=== PATIENT | female | born 1985 | race American Indian/Alaskan Native ===

== ENCOUNTER 2017-05-28 19:12 | Emergency (ER) | payer OTHER ==
[2017-05-28 19:46] VITALS: BP 110/73; PULSE 75; RESP 16; TEMP 98.5; O2SAT 100
--- NOTE | 2017-05-28 20:02 | C.PDOC ---
History Of Present Illness 31 year old female presents to ED with complaints of right wrist pain and buttocks pain after fall yesterday while [place] [employer]. She reports falling twice once on her bottom and then another fall catching her wrist. She took Tylenol last night and this afternoon with mild relief. She wants xrays. Denies any head injury, numbness, weakness, incontinence, other associated complaint. She is right hand dominant. - HPI Time Seen by Provider: 05/28/17 19:49 Chief Complaint (Nursing): Upper Extremity Problem/Injury History Per: Patient History/Exam Limitations: no limitations Onset/Duration Of Symptoms: Days Injury Occurred (Timing): Days Ago: (Yesterday) Location Of Injury: Right: Wrist, Posterior: Back Recent travel outside of the [place]: No Past Medical History Reviewed: Historical Data, Nursing Documentation, Vital Signs Vital Signs: Last Vital Signs Temp 98.5 F 05/28/17 19:40 Pulse 75 05/28/17 19:40 Resp 16 05/28/17 19:40 BP 110/73 05/28/17 19:40 Pulse Ox 100 05/28/17 21:17 - Medical History PMH: Seizures (BRAIN SURGERIES) Surgical History: No Surg Hx Family History: States: Unknown Family Hx - Social History Hx Tobacco Use: No Hx Alcohol Use: No Hx Substance Use: No - Immunization History Hx Tetanus Toxoid Vaccination: Yes Hx Influenza Vaccination: No Hx Pneumococcal Vaccination: No Review Of Systems Musculoskeletal: Positive for: Back Pain, Hand Pain Neurological: Negative for: Weakness, Numbness Physical Exam - Physical Exam Appears: Non-toxic Skin: Normal Color, Warm, Dry Head: Atraumatic, Normacephalic Oral Mucosa: Moist Back: Other (Mild tenderness to sacrum and coccyx, no swelling, no ecchymosis. normal ROM) Extremity: Tenderness (Across entire right wrist, no focal bony tenderness, pain with pronation and rotation of wrist. None to hands and digits.), No Swelling Pulses: Left Radial: Normal, Right Radial: Normal Neurological/Psych: Oriented x3, Normal Speech, Normal Cognition ED Course And Treatment O2 Sat by Pulse Oximetry: 100 (Room air) Pulse Ox Interpretation: Normal Medical Decision Making Medical Decision Making: Impression: 31 year old female with fall last night while skating complains of right wrist and buttock pain. Plan: Xrays of wrist and sacrum/coccyx. Patient declined any analgesic at this time Progress: XRays reviewed by me showing no acute fractures. Volar splint applied to wrist for support. Patient advised to take analgesics as needed Disposition Counseled Patient/Family Regarding: Diagnosis, Need For Followup - Disposition Disposition: HOME/ ROUTINE Disposition Time: 21:14 Condition: STABLE Additional Instructions: Your xray was normal, no fracture. Please apply ice to area 15 minutes three times a day. Take Motrin as needed for pain every 6 hours, with food to not upset stomach. Follow up with orthopedic if pain persists over one week. Instructions: Wrist Injury (ED), Contusion in Adults (ED) Forms: [employer] (Armenian) - POA Present On Arrival: None - Clinical Impression Clinical Impression: Back contusion, Wrist sprain - Scribe Statement Bret Ni All medical record entries made by the Scribe were at my direction and personally dictated by me. I have reviewed the chart and agree that the record accurately reflects my personal performance of the history, physical exam, medical decision making, and the department course for this patient. I have also personally directed, reviewed, and agree with the discharge instructions and disposition.
--- NOTE | 2017-05-29 10:52 | RAD ---
PROCEDURE: Right Wrist Radiographs. HISTORY: pain s.p fall while skating COMPARISON: None available. FINDINGS: BONES: No acute displaced fracture. JOINTS: No dislocation. SOFT TISSUES: Unremarkable. No evidence of radiopaque foreign body OTHER FINDINGS: None. IMPRESSION: No acute displaced fracture, dislocation, or significant joint effusion identified. If symptoms persist, or if there is continued clinical concern, x-ray follow-up in 7-10 days should be considered.
--- NOTE | 2017-05-29 12:33 | RAD ---
PROCEDURE: Radiographs of the Sacrum and Coccyx HISTORY: pain s.p fall while skating COMPARISON: None available. TECHNIQUE: Frontal and lateral views of the sacrum and coccyx FINDINGS: BONES: Limited lateral view. Sacrum and coccyx appear otherwise grossly unremarkable. No acute displaced fracture identified. SACROILIAC JOINTS: Unremarkable. OTHER FINDINGS: None. IMPRESSION: Limited lateral view. No acute displaced fracture identified.
== END 2017-05-28 21:41 | disposition home or self-care (01) ==
LOC: C.ER 19:12
DX: S63.501A Unspecified sprain of right wrist, initial encounter (principal); S30.0XXA Contusion of lower back and pelvis, initial encounter; W01.0XXA Fall on same level from slipping, tripping and stumbling without subsequent striking against object, initial encounter; Y93.51 Activity, roller skating (inline) and skateboarding; Y92.331 Roller skating rink as the place of occurrence of the external cause

== ENCOUNTER 2017-09-20 19:18 | Emergency (ER) | payer OTHER ==
[2017-09-20 19:27] VITALS: RESP 16; TEMP 97.9
--- NOTE | 2017-09-20 19:35 | C.PDOC ---
History Of Present Illness 31 year old female presents to the ED for evaluation of pain to right first and second toes which began today. Patient states she over extended her right great toe while she slipped off of a step earlier today and landed on tippy toes. Patient denies head injury, LOC, extremity numbness/weakness at this time. Chief Complaint (Nursing): Lower Extremity Problem/Injury History Per: Patient History/Exam Limitations: no limitations Onset/Duration Of Symptoms: Hrs Current Symptoms Are (Timing): Still Present Additional History Per: Patient - Ankle/Foot Description Of Injury: Fell Past Medical History Reviewed: Historical Data, Nursing Documentation, Vital Signs Vital Signs: Last Vital Signs Temp 97.9 F 09/20/17 19:22 Pulse 75 09/20/17 21:04 Resp 16 09/20/17 21:04 BP 132/85 09/20/17 21:04 Pulse Ox 100 09/21/17 00:43 - Medical History PMH: Seizures (BRAIN SURGERIES) Surgical History: No Surg Hx Family History: States: Unknown Family Hx - Social History Hx Tobacco Use: No Hx Alcohol Use: No Hx Substance Use: No - Immunization History Hx Tetanus Toxoid Vaccination: Yes Hx Influenza Vaccination: No Hx Pneumococcal Vaccination: No Review Of Systems Musculoskeletal: Positive for: Foot Pain (right 1st and 2nd toes ) Neurological: Negative for: Weakness, Numbness Physical Exam - Physical Exam Appears: Non-toxic, No Acute Distress Skin: Normal Color, Warm, Dry Extremity: Normal ROM, Tenderness (slight, to right great toe ), Capillary Refill (less than 2 seconds ), No Deformity, No Swelling, Other (minimal tenderness to right 2nd toe ) Neurological/Psych: Oriented x3, Normal Speech, Normal Cognition, Normal Sensation Gait: Steady ED Course And Treatment O2 Sat by Pulse Oximetry: 100 (on RA) Pulse Ox Interpretation: Normal Progress Note: Motrin PO administered. Right foot XR ordered, results show no fracture or dislocations. Patient was provided with orthopedic shoe for support. On reassessment, patient is resting comfortably, showing no signs of distress and reports an improvement in her symptoms. Patient is advised to follow up with her PMD within 1-2 days for further evaluation and/or return to the ED if symptoms persist or worsen. 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 - Scribe Statement The provider has reviewed the documentation as recorded by the Scribe (Shwetha Hurley) All medical record entries made by the Scribe were at my direction and personally dictated by me. I have reviewed the chart and agree that the record accurately reflects my personal performance of the history, physical exam, medical decision making, and the department course for this patient. I have also personally directed, reviewed, and agree with the discharge instructions and disposition.
[2017-09-20 21:05] VITALS: BP 132/85; PULSE 75
[2017-09-20 23:41] VITALS: O2SAT 100
--- NOTE | 2017-09-21 09:18 | RAD ---
PROCEDURE: Right Foot Radiographs. HISTORY: pain, injured big toe COMPARISON: None. FINDINGS: BONES: Normal. No fracture. JOINTS: Normal. SOFT TISSUES: Mild soft tissue swelling over great toe OTHER FINDINGS: Mild hammertoe orientations IMPRESSION: No fracture
== END 2017-09-20 21:04 | disposition home or self-care (01) ==
LOC: C.ER 19:18
DX: S93.501A Unspecified sprain of right great toe, initial encounter (principal); W10.9XXA Fall (on) (from) unspecified stairs and steps, initial encounter

== ENCOUNTER 2017-11-16 15:19 | Emergency (ER) | payer OTHER ==
[2017-11-16 15:47] VITALS: RESP 16; O2SAT 100
--- NOTE | 2017-11-16 16:29 | C.PDOC ---
History Of Present Illness 31 y/o female with seizure disorder, on tamiflu for flu like symptoms, for last few days c/o worsening throat pain. pt not taking anything for pain. pain worse after coughing and with swallowing. pt concerned she may have strep throat. Time Seen by Provider: 11/16/17 15:58 Chief Complaint (Nursing): Flu-like Symptoms History Per: Patient History/Exam Limitations: no limitations Onset/Duration Of Symptoms: Days (4) Current Symptoms Are (Timing): Still Present Location Of Pain: Throat Sick Contacts (Context): None Associated Symptoms: Sore Throat, Cough Past Medical History Reviewed: Historical Data, Nursing Documentation, Vital Signs Vital Signs: Last Vital Signs Temp 98.6 F 11/16/17 17:13 Pulse 75 11/16/17 17:13 Resp 16 11/16/17 17:13 BP 98/63 L 11/16/17 17:13 Pulse Ox 100 11/16/17 22:23 - Medical History PMH: Seizures (BRAIN SURGERIES) Family History: States: Unknown Family Hx - Social History Hx Tobacco Use: No Hx Alcohol Use: No Hx Substance Use: No - Immunization History Hx Tetanus Toxoid Vaccination: Yes Hx Influenza Vaccination: No Hx Pneumococcal Vaccination: No Review Of Systems Constitutional: Positive for: Fever, Chills ENT: Positive for: Throat Pain Respiratory: Positive for: Cough, Pleuritic Pain, Sputum Gastrointestinal: Negative for: Vomiting, Abdominal Pain Physical Exam - Physical Exam Appears: Non-toxic, Other (uncomfortable) Skin: Warm, Dry Head: Atraumatic, Normacephalic Eye(s): bilateral: Normal Inspection Oral Mucosa: Moist Tongue: Normal Appearing Throat: Erythema, No Exudate, Other (no tonsillar enlargement) Neck: Supple Cardiovascular: Rhythm Regular, No Murmur Respiratory: No Decreased Breath Sounds, No Wheezing ED Course And Treatment O2 Sat by Pulse Oximetry: 100 Medical Decision Making Medical Decision Making: check rapid strep, give tylenol Disposition Counseled Patient/Family Regarding: Diagnosis, Need For Followup, Rx Given - Disposition Referrals: Eulalia Santoyo [Medical Doctor] - Disposition: HOME/ ROUTINE Disposition Time: 17:15 Condition: STABLE Additional Instructions: Gargle with warm salty water as prescribed. Take tylenol as prescrbied for pain. Drink increased warm fluids like tea with honey and lemon. Follow up with your doctor. Prescriptions: Acetaminophen [Tylenol 325mg tab] 650 mg PO Q6 #30 tab Instructions: Pharyngitis (ED) Forms: [employer] ([place] Islander), General Discharge Instructions - Clinical Impression Clinical Impression: Pharyngitis
[2017-11-16 17:13] VITALS: BP 98/63; PULSE 75; TEMP 98.6
== END 2017-11-16 17:22 | disposition home or self-care (01) ==
LOC: C.ER 15:19
DX: J02.9 Acute pharyngitis, unspecified (principal)

== ENCOUNTER 2017-11-24 17:43 | Emergency (ER) | payer OTHER ==
[2017-11-24 18:34] VITALS: BMI 25.0
[2017-11-24 18:38] VITALS: BP 96/85; PULSE 99; RESP 18; TEMP 98.4; O2SAT 98
== END 2017-11-24 18:50 | disposition left against medical advice (07) ==
LOC: C.ER 17:43
DX: Z02.89 Encounter for other administrative examinations (principal); J11.1 Influenza due to unidentified influenza virus with other respiratory manifestations

== ENCOUNTER 2017-11-24 22:50 | Emergency (ER) | payer OTHER ==
[2017-11-24 22:50] VITALS: BMI 25.0
[2017-11-25 00:23] VITALS: RESP 20; O2SAT 100
--- NOTE | 2017-11-25 01:16 | C.PDOC ---
History Of Present Illness Patient is a 31 y/o female who presents to the ED with complaints of cough and SOB worsening since last week. Patient was treated by PMD for flu-like symptoms with Tamiflu, but started coughing and feeling SOB, prompting ED visit. Patient denies fever, chills, nausea, or vomiting; admits to tolerating PO. No other physical complaints at this time. Time Seen by Provider: 11/25/17 01:15 Chief Complaint (Nursing): Flu-like Symptoms History Per: Patient History/Exam Limitations: no limitations Onset/Duration Of Symptoms: Days (last week) Current Symptoms Are (Timing): Still Present Associated Symptoms: denies: Fever, Chills, Nausea, Vomiting Severity: Moderate Pain Scale Rating Of: 4 Recent travel outside of the [place]: No Additional History Per: Patient Past Medical History Reviewed: Historical Data, Nursing Documentation, Vital Signs Vital Signs: Last Vital Signs Temp 98.7 F 11/25/17 00:15 Pulse 96 H 11/25/17 00:15 Resp 20 11/25/17 00:15 BP 122/87 11/25/17 00:15 Pulse Ox 100 11/25/17 02:30 - Medical History PMH: Seizures (BRAIN SURGERIES) Surgical History: No Surg Hx Family History: States: No Known Family Hx - Social History Hx Tobacco Use: No (former smoker) Hx Alcohol Use: No Hx Substance Use: No - Immunization History Hx Tetanus Toxoid Vaccination: Yes Hx Influenza Vaccination: No Hx Pneumococcal Vaccination: No Review Of Systems Constitutional: Negative for: Fever, Chills Respiratory: Positive for: Cough, Shortness of Breath Gastrointestinal: Negative for: Nausea, Vomiting Physical Exam - Physical Exam Appears: Non-toxic, No Acute Distress Skin: Warm, Dry Head: Normacephalic Eye(s): bilateral: Normal Inspection Ear(s): Bilateral: Normal Oral Mucosa: Moist Lips: Normal Appearing Throat: No Erythema, No Exudate, Other (oropharynx clear) Neck: Supple Chest: Symmetrical Cardiovascular: Rhythm Regular, No Murmur Respiratory: No Rales, Rhonchi (scattered ), No Wheezing Gastrointestinal/Abdominal: Soft, No Tenderness Neurological/Psych: Oriented x3, Normal Speech, Normal Cognition ED Course And Treatment - Laboratory Results Result Diagrams: 11/25/17 02:08 11/25/17 02:08 O2 Sat by Pulse Oximetry: 100 Pulse Ox Interpretation: Normal - Radiology CXR: Interpreted by Me, Viewed By Me CXR Interpretation: No: Infiltrates, Fracture, Pnemothorax Progress Note: EKG, CXR, blood work, influenza A B, UA, and HCG urine ordered. Tegretol, Cimpat, keppra, nebulizer treatment, and IV fluids administered. Disposition Counseled Patient/Family Regarding: Studies Performed, Diagnosis, Need For Followup, Rx Given - Disposition Referrals: [facility] [Outside] [facility] [Outside] Disposition: HOME/ ROUTINE Disposition Time: 01:15 Condition: FAIR Additional Instructions: Please return if symptoms recur Prescriptions: Albuterol HFA [Ventolin HFA 90 mcg/actuation (8 g)] 2 puff IH [id number] 1 Days #1 puff Azithromycin [Zithromax Tri-Raymon] 500 mg PO DAILY #3 tab Benzonatate [Tessalon Perles] 100 mg PO TID PRN #15 sgl PRN Reason: Cough Instructions: Upper Respiratory Infection (ED) Forms: [email or web address] (Vietnamese) - Clinical Impression Clinical Impression: URI (upper respiratory infection) - Scribe Statement The provider has reviewed the documentation as recorded by the Scribe Lizy Nunez All medical record entries made by the Scribe were at my direction and personally dictated by me. I have reviewed the chart and agree that the record accurately reflects my personal performance of the history, physical exam, medical decision making, and the department course for this patient. I have also personally directed, reviewed, and agree with the discharge instructions and disposition.
[2017-11-25] MEDS ORDERED: Sodium Chloride 0.9% 1,000 ML IV ONE (01:20)
[2017-11-25] MEDS ORDERED: Lacosamide 100 MG Tab PO STA (01:24)
[2017-11-25] MEDS: Albuterol-Ipratrop 3 mg / 0.5 (3 ml) UD IH SCH (02:03)
[2017-11-25] MEDS ORDERED: Albuterol-Ipratrop 3 mg / 0.5 (3 ml) UD ONE (02:08)
[2017-11-25 02:11] LABS: BASO # 0.1 K/uL (0.0-0.2); BASO % 0.9 % (0.0-2.0); EOS # 0.1 K/uL (0.0-0.7); EOS % 1.3 % (0.0-4.0); HEMOGLOBIN 12.3 g/dL (11.0-16.0); LYMPH # 2.5 K/uL (1.0-4.3); LYMPH % 28.9 % (20.0-40.0); MEAN CELL VOLUME 92.9 fL (81.0-99.0); MEAN CORPUSCULAR HEMOGLOBIN 32.1 pg (27.0-31.0); MEAN CORPUSCULAR HGB CONC 34.5 g/dL (33.0-37.0); MEAN PLATELET VOLUME 7.9 fL (7.2-11.7); MONO # 0.7 K/uL (0.0-0.8); MONO % 8.5 % (0.0-10.0); NEUT # 5.3 K/uL (1.8-7.0); NEUT % 60.4 % (50.0-75.0); RBC 3.84 Mil/uL (3.80-5.20); RED CELL DISTRIBUTION WIDTH 12.4 % (11.5-14.5); WHITE BLOOD COUNT 8.8 K/uL (4.8-10.8)
[2017-11-25 02:19] LABS: VENOUS BLOOD GAS BASE EXCESS 4.5 mmol/L (0.0-2.0); VENOUS BLOOD GAS PCO2 54 mmHg (40-60); VENOUS BLOOD GAS PO2 26 mm/Hg (30-55); VENOUS BLOOD PH 7.37 (7.32-7.43)
[2017-11-25] MEDS ORDERED: Sodium Chloride 0.9% 1,000 ML ONE (02:21)
[2017-11-25 02:25] LABS: ALB/GLOB RATIO 0.9 (1.0-2.1); ALBUMIN 4.1 g/dL (3.5-5.0); ALT/SGPT 22 U/L (9-52); AST/SGOT 17 U/L (14-36); BLOOD UREA NITROGEN 13 mg/dL (7-17); CALCIUM 9.1 mg/dl (8.6-10.4); GFR AFRICAN-AMERICAN > 60; GFR NON-AFRICAN AMERICAN > 60
[2017-11-25 02:33] LABS: SQUAMOUS EPITHIAL 1 /hpf (0-5); URINE BILIRUBIN NEGATIVE (NEGATIVE); URINE BLOOD NEGATIVE (NEGATIVE); URINE CLARITY Clear (Clear); URINE COLOR Yellow (YELLOW); URINE GLUCOSE (UA) NORMAL (Normal); URINE LEUKOCYTE ESTERASE NEG Leu/uL (Negative); URINE NITRATE NEGATIVE (NEGATIVE); URINE PROTEIN NEGATIVE (NEGATIVE); URINE UROBILINOGEN NORMAL mg/dL (0.2-1.0)
[2017-11-25 03:55] VITALS: BP 121/81; PULSE 97; TEMP 98.4
--- NOTE | 2017-11-25 10:59 | RAD ---
HISTORY: SOB, cough COMPARISON: Chest x-ray performed 03/03/15 TECHNIQUE: Chest PA and lateral FINDINGS: LUNGS: Medial right lobe atelectasis or pneumonia. PLEURA: No significant pleural effusion identified. No definite pneumothorax . CARDIOVASCULAR: The cardiomediastinal silhouette appears within normal limits of size. OSSEOUS STRUCTURES: No acute osseous abnormality identified. VISUALIZED UPPER ABDOMEN: Unremarkable. OTHER FINDINGS: None. IMPRESSION: Medial right lower lobe atelectasis or pneumonia. Study marked for PA review.
--- NOTE | 2017-11-27 11:37 | CARD ---
APPROVED REPORT EKG Measurement Heart [id number] <Conclusion> Normal sinus rhythm Normal ECG
== END 2017-11-25 03:15 | disposition home or self-care (01) ==
LOC: C.ER 22:50
DX: J06.9 Acute upper respiratory infection, unspecified (principal); Z87.891 Personal history of nicotine dependence
CPT/HCPCS: 71046; 80053; 81001; 82803; 84703; 85025; 87040; 87804; 96360; 99283; J7040